=== PATIENT | male | born 1965 | race Caucasian/White ===

== ENCOUNTER 2021-01-07 10:53 | Emergency (ER) | payer OTHER, SELFPAY ==
[2021-01-07 11:04] VITALS: BP 151/97; PULSE 82; RESP 20; TEMP 36.6; O2SAT 99
--- NOTE | 2021-01-07 12:37 | ED.GENADULT ---
HPI - General Adult General Chief complaint: Head Injury <Devon Cha PA-C - Last Filed: 01/07/21 12:41> Stated complaint: head injury <Devon Cha PA-C - Last Filed: 01/07/21 12:41> Time Seen by Provider: 01/07/21 11:16 <Devon Cha PA-C - Last Filed: 01/07/21 12:41> Source: patient <Devon Cha PA-C - Last Filed: 01/07/21 12:41> Mode of arrival: ambulatory <Devon Cha PA-C - Last Filed: 01/07/21 12:41> Limitations: no limitations <Devon Cha PA-C - Last Filed: 01/07/21 12:41> History of Present Illness HPI narrative: Patient is a 55-year-old male who presents with laceration to the parietal scalp that occurred just prior to arrival patient had the alberto of his vehicle open slipped and struck his head sustaining a laceration notes mild discomfort at the location of the laceration with mild headache denies lightheadedness dizziness loss of consciousness syncope neck pain or anticoagulant use presents per private vehicle no distress has not taken anything for his symptoms does not wish for any pain medication at this time <Devon Cha PA-C - Last Filed: 01/07/21 12:41> Related Data Home medications: Home Medications Medication Instructions Recorded Confirmed Flomax 01/07/21 fremanezumab-vfrm [Ajovy Syringe] mg SUBCUT 01/07/21 testosterone cypionate mg 01/07/21 <Devon Cha PA-C - Last Filed: 01/07/21 12:41> Allergies/adverse reactions: Allergies Allergy/AdvReac Type Severity Reaction Status Date / Time No Known Allergies Allergy Verified 01/07/21 11:07 <Devon Cha PA-C - Last Filed: 01/07/21 12:41> Review of Systems Review of Systems: All systems reviewed & are unremarkable except as noted in HPI and below <Devon Cha PA-C - Last Filed: 01/07/21 12:41> PMFSH Social History Social History: Social History (Updated 01/07/21 @ 12:38 by Devon Cha PA-C) Smoking status: Never smoker Gender identity (if verbalized by the patient): Male <HEATHER Garcia Last Filed: 01/07/21 12:41> Exam Narrative: Exam Narrative: GENERAL: Well-appearing, well-nourished, and in no acute distress. HEAD: Normocephalic, 2 cm irregular laceration frontal parietal scalp EYES: PERRLA and EOMI. ENT: Nares clear, no rhinorrhea or epistaxis. Mucous membranes moist. NECK: Supple. No adenopathy or masses. EXTREMITIES: Normal range of motion. No edema. No cervical spine tenderness SKIN: Warm, dry, no rash. NEURO: No focal deficits. Alert and oriented x3. Cranial nerves II through XII grossly intact PSYCH: Normal mood and affect. <HEATHER Garcia Last Filed: 01/07/21 12:41> Course Course Emergency Course: Patient evaluated the emergency department scalp closed with domonique will follow with primary care no concerning findings otherwise at this time patient hemodynamically stable ABCs vital signs intact stable patient agrees with plan <Devon Cha PA-C - Last Filed: 01/07/21 12:41> Vital Signs Vital signs: Vital Signs Temperature 97.8 F 01/07/21 11:04 Pulse Rate 82 01/07/21 11:04 Respiratory Rate 20 01/07/21 11:04 Blood Pressure 151/97 H 01/07/21 11:04 Pulse Oximetry 99 01/07/21 11:04 Temperature 97.8 F 01/07/21 11:04 Pulse Rate 78 01/07/21 12:45 Respiratory Rate 18 01/07/21 12:45 Blood Pressure 146/88 H 01/07/21 12:45 Pulse Oximetry 98 01/07/21 12:45 <HEATHER Garcia Last Filed: 01/07/21 12:41> Vital Signs Temperature 97.8 F 01/07/21 11:04 Pulse Rate 82 01/07/21 11:04 Respiratory Rate 20 01/07/21 11:04 Blood Pressure 151/97 H 01/07/21 11:04 Pulse Oximetry 99 01/07/21 11:04 Temperature 97.8 F 01/07/21 11:04 Pulse Rate 78 01/07/21 12:45 Respiratory Rate 18 01/07/21 12:45 Blood Pressure 146/88 H 01/07/21 12:45 Pulse Oximetry 98 02/14/21 12:45 <Vira Walters MD
[2021-01-07 12:45] VITALS: BP 146/88; PULSE 78; RESP 18; O2SAT 98
== END 2021-01-07 12:48 | disposition home or self-care (01) ==
PROVIDERS: Emergency Provider General Practice; PCP Internal Medicine
DX: S01.01XA Laceration without foreign body of scalp, initial encounter (principal); W22.8XXA Striking against or struck by other objects, initial encounter
CPT/HCPCS: 12001; 99283

== ENCOUNTER 2021-04-02 15:48 | Outpatient (CLI) | payer OTHER, SELFPAY ==
--- NOTE | ~2021-04-02 | MR_ITS ---
EXAMINATION: MR shoulder LT wo con DATE: 04/02/2021 16:55 INDICATION: Left shoulder pain TECHNIQUE: Magnetic resonance imaging (MRI) of the left shoulder was performed without intravenous co ntrast. Sequences included axial PD-weighted FS FSE, coronal oblique PD-weighted FS FSE, coronal obli que T2-weighted FS FSE, sagittal PD-weighted FS FSE, and sagittal T1-weighted SE. COMPARISON: None. FINDINGS: Coracoacromial arch: The acromion undersurface is curved in morphology (type II). The coracoacromial ligament is normal. M oderate acromioclavicular osteoarthritis with subarticular edema and cystic change at both sides of t he joint space.. Rotator cuff: Mild tendinopathy at the distal supraspinatus tendon. The infraspinatus and teres minor tendons are n ormal. Mild tendinopathy at the cephalad aspect of the distal subscapularis tendon. Normal rotator cu ff muscle bulk and signal. Biceps tendon, glenoid labrum and glenohumeral cartilage: Long head of the biceps tendon is normal. There is a tear at the 11:00-9:30 position of the posterior superior glenoid labrum. The inferior labrum is diminutive but without discrete tear. Mild partial t hickness cartilage loss with smooth chondral surface along the posterior and superior glenoid. Fluid: Physiologic amount of fluid in the glenohumeral joint and biceps tendon sheath. No loose osteochondra l bodies. No abnormal fluid in the subacromial/subdeltoid bursa to suggest bursitis. Bones: Aside from at the acromioclavicular joint there is normal marrow signal. No fracture or pathologic ma rrow replacing process. IMPRESSION: 1. Moderate acromioclavicular osteoarthritis with subarticular cystic change and prominent reactive m arrow edema. 2. Mild supraspinatus and subscapularis tendinopathy without discrete tear. 3. Minimal glenohumeral osteoarthritis with tear at the posterior superior glenoid labrum. Reviewed, dictated and finalized at location A. IMPRESSION: 1. Moderate acromioclavicular osteoarthritis with subarticular cystic change an d prominent reactive marrow edema. 2. Mild supraspinatus and subscapularis tendinopathy without discrete tear. 3. Minimal glenohumeral osteoarthritis with tear at the posterior superior yamini oid labrum.
== END 2021-04-02 15:49 | disposition home or self-care (01) ==
PROVIDERS: Visit Provider Orthopaedic Surgery
DX: M19.012 Primary osteoarthritis, left shoulder (principal)
CPT/HCPCS: 73221

== ENCOUNTER 2021-11-19 14:47 | Outpatient (CLI) | payer OTHER, SELFPAY ==
--- NOTE | ~2021-11-19 | XR_ITS ---
XR abdomen/kub 1V DATE: 11/19/2021 15:06 INDICATION: Microscopic hematuria TECHNIQUE: AP projection, 2 views COMPARISON: None FINDINGS: There is a moderately prominent amount of fecal material in the colon but no evidence of martha wel obstruction. 7 x 11.5 mm radiopaque foreign body overlies the right lower quadrant of the abdomen. No visceromegaly or significant abnormal calcification is evident. The psoas shadows are intact. IMPRESSION: Nonspecific abdomen Reviewed, dictated and finalized at Location A. Reviewed, dictated and finalized at location A. RVISOR FURNACE PROCESS IMPRESSION: Nonspecific abdomen
== END 2021-11-19 14:48 | disposition home or self-care (01) ==
LOC: ANHIMG 14:55
PROVIDERS: Visit Provider Urology
DX: R31.29 Other microscopic hematuria (principal)
CPT/HCPCS: 74018

== ENCOUNTER 2021-12-06 09:56 | Outpatient (CLI) | payer OTHER, SELFPAY ==
--- NOTE | ~2021-12-06 | XR_ITS ---
EXAMINATION: XR abdomen/kub 1V DATE: 12/06/2021 10:18 INDICATION: Foreign body in colon. Swallowed crown in May. TECHNIQUE: A supine view of the abdomen on 2 radiographs was obtained. COMPARISON: Abdomen radiographs 11/19/2021 FINDINGS: There are no dilated loops of bowel. There is a 14 mm radiopaque foreign body in right abdo men. There is a phlebolith in left pelvis. IMPRESSION: 1. 14 mm radiopaque foreign body in right abdomen, most likely in the ascending colon. Reviewed, dictated and finalized at location B. CAL AFFAIRS MANAGER
== END 2021-12-06 09:57 | disposition home or self-care (01) ==
LOC: ANHIMG 10:01
DX: T18.9XXA Foreign body of alimentary tract, part unspecified, initial encounter (principal)
CPT/HCPCS: 74018

== ENCOUNTER 2022-07-13 12:00 | Emergency (ER) | payer OTHER, SELFPAY ==
--- NOTE | 2022-07-13 12:09 | ED.WOUNDLAC ---
HPI - Wound/Laceration General Chief Complaint: Wound/Laceration Stated Complaint: Laceration to finger on right hand Time Seen by Provider: 07/13/22 12:07 Source: patient Mode of arrival: ambulatory Limitations: no limitations History of Present Illness HPI narrative: Mr. Dill is a 56-year-old male patient presenting to the clinic today with complaints of a laceration to the index finger of his right hand. He reports he was trying to cut a hook at the back of a fish and fish jumped and he jabbed himself with the fillet knife. He reports that the knife was brand-new. Had tetanus shot approximately 9 years ago. Review of Systems Review of Systems: Pertinent positives per HPI. Patient denies any fever, chills, rash, headache, visual changes, dizziness, cough, runny nose, sore throat, shortness of breath, chest pain, palpitations, nausea, vomiting, diarrhea, constipation, abdominal pain, or any urinary issues. PMFSH Comments At the time of my signature, I reviewed and agree with the nursing past medical, surgical, social, and family history. There is no relevant family history pertinent to the patient complaint. Exam Narrative: General: Well-developed, well nourished, in no apparent distress Head: Normocephalic, atraumatic. Cardio: Regular rate and rhythm, s1 and s2 normal, no murmur appreciated. Resp: Clear to auscultation bilaterally, no rhonchi, rales, wheezing or rubs. Integumentary: [place], warm, and dry, 2 cm gaping laceration to the volar aspect of the right second digit just above the MIP joint Course Course Emergency Course: Portions of this record may have been created with voice recognition software. Level of Care: Express Care Visit Vital Signs Vital signs: Vital signs reviewed Procedures Laceration Laceration 1: Date: 07/13/22 Site: hand (Index finger) Side (If applicable): right Size (cm): 2 Description: linear Depth: simple, single layer Local Anesthetic: lidocaine 1% Amount of anesthesia used (mL): 1 Pre-repair: wound explored and irrigated ====== Skin Level ====== Skin layer closed with: nylon Size (cm): 4-0 Number of sutures: 4 Technique: simple, interrupted ====== Subcutaneous Layer ====== ====== Muscle Layer ====== ====== Tendon Layer ====== Dressing: Verbal consent obtained for laceration repair. Risk and benefits explained and patient voiced understanding. Area was cleansed with Betadine and a 25 gauge needle was then used to instill (1) ml of 1% lidocaine without epi into the wound edges. Area was prepped and draped using sterile technique. A 4-0 suture on a p needle was used to place (4) interrupted sutures bringing the wound edges together- well approximated. Patient tolerated procedure well. Sterile dressing applied. MDM - Wound/Laceration MDM Narrative Medical decision making narrative: At the time of visit patient was resting comfortably on the exam table. Laceration repair procedure performed in the clinic today. 4 interrupted sutures were placed and wound edges were together well approximated. Supportive measures were discussed with the patient he voiced understanding of discharge instructions. Tetanus shot was given in clinic today. Differential Diagnosis Differential diagnosis: Likely laceration and avulsion of skin Discharge Plan Discharge Clinical Impression: Finger laceration Qualifiers: Encounter type: initial encounter Finger: index finger Damage to nail status: without damage Foreign body presence: without foreign body Laterality: right Qualified Code(s): S61.210A - Laceration without foreign body of right index finger without damage to nail, initial encounter Patient Disposition: Home, Self-Care Condition: Stable Instructions: Antibiotic Form, Finger Laceration (ED) Additional Instructions: Tetanus booster given in the clinic today Leave ba
[2022-07-13] MEDS: TETANUS,DIPHTHERIA,AC PERTUSSIS ADULT (0.5 ML) BOOSTRIX IM (12:45)
== END 2022-07-13 13:05 | disposition home or self-care (01) ==
PROVIDERS: Emergency Provider Nurse Practitioner Family; PCP Internal Medicine
DX: S61.210A Laceration without foreign body of right index finger without damage to nail, initial encounter (principal); W26.0XXA Contact with knife, initial encounter; Z23 Encounter for immunization; E78.00 Pure hypercholesterolemia, unspecified; I10 Essential (primary) hypertension
CPT/HCPCS: 12001; 90471; 90715; 99212; G0463

== ENCOUNTER 2024-12-10 14:26 | Outpatient (CLI) | payer OTHER, SELFPAY ==
--- NOTE | ~2024-12-10 | US_ITS ---
EXAMINATION: US venous doppler [facility] DATE: 12/10/2024 15:07 INDICATION: LT calf pain . TECHNIQUE: Grayscale images without and with compression and Doppler images of the left lower extremi ty veins were obtained. COMPARISON: None FINDINGS: The greater saphenous vein is dilated and noncompressible from the level of the knee to mid calf. The left common femoral vein, profunda (deep) femoral vein, femoral vein, popliteal vein, peroneal vein , posterior tibial veins, and gastrocnemius vein are patent. IMPRESSION: Acute left greater saphenous DVT. Otherwise patent left lower extremity veins. Reviewed, dictated and finalized at location K. ER COPPER
--- OUTSIDE RECORDS SUMMARY | 2024-12-16 07:07 | XMS_ITS | Continuity of Care Document ---
Author Name [facility] Organization [facility] Care Team Providers Care Residence Manager Name Role Phone [facility] Unavailable Unavailable Encounters Combined list of: 1) Encounters from Department of Veterans Affairs facilities going back up to thelast 18 months. 2) Encounters from the Department of Defense facilities going back up to 280 months. Location Location Details Encounter Type Encounter Number Reason For Visit Attending Provider ADM Date DC Date Status Disposition Source [facility] Outpatient Encounter [id number] 04/28 [facility] Social History Combined list of available smoking, tobacco, and other social history from Department of Defense and Veterans Affairs facilities. Social History Type Response Date Comment Sourc e This section is an empty social history section. DoD
== END 2024-12-10 14:27 | disposition home or self-care (01) ==
LOC: ANHIMG 14:32
PROVIDERS: PCP Internal Medicine; Visit Provider Internal Medicine
DX: I82.812 Embolism and thrombosis of superficial veins of left lower extremity (principal)
CPT/HCPCS: 93971

== ENCOUNTER 2024-12-14 14:33 | Outpatient (CLI) | payer OTHER, SELFPAY ==
--- NOTE | ~2024-12-14 | US_ITS ---
EXAMINATION:US venous doppler LE RT INDICATION:Right calf pain. Patient on blood thinners. TECHNIQUE: Multiple grayscale, color flow and Doppler images of the right lower extremity deep venous systems were obtained and reviewed. COMPARISON:No prior studies for comparison. FINDINGS: The common femoral, superficial femoral and popliteal veins demonstrate normal respiratory variation, augmentation and compressibility. Color flow is also seen within the posterior tibial, pe roneal, and profunda veins. There is superficial venous thrombosis of the distal aspect of the greate r saphenous vein. IMPRESSION: 1: No lower extremity deep venous thrombosis. 2: Superficial venous thrombosis of the right greater saphenous vein. Reviewed, dictated and finalized at location A. NSED CLINICIAN
--- OUTSIDE RECORDS SUMMARY | 2024-12-16 19:03 | XMS_ITS | Continuity of Care Document ---
Author Name [facility] Organization [facility] Care Team Providers Care Tar Chaser Name Role Phone [facility] Unavailable Unavailable Encounters Combined list of: 1) Encounters from Department of Veterans Affairs facilities going back up to thelast 18 months. 2) Encounters from the Department of Defense facilities going back up to 280 months. Location Location Details Encounter Type Encounter Number Reason For Visit Attending Provider ADM Date DC Date Status Disposition Source [facility] Outpatient Encounter [id number] 04/28 [facility] Social History Combined list of available smoking, tobacco, and other social history from Department of Defense and Veterans Affairs facilities. Social History Type Response Date Comment Sourc e This section is an empty social history section. DoD
--- OUTSIDE RECORDS SUMMARY | 2024-12-16 19:03 | XMS_ITS | Referral Summary ---
Author Organization [facility] Address [address] [place] [address] Care Team Providers Care Electric Meter Tester Name Role Phone Maria Ines Steiner MD Primary Care Provider [phone] Source Comments [facility] Affiliates and Associated Physician Practices is amultiple site organization consisting of ambulatory clinics and hospital sitesin [place], [place], [place] and [place]. This disclosure is being madepursuant to the Care Everywhere program and may not contain all information available regarding this patient. Last updated 18.[facility] Allergies Active Allergy Reactions Criticality Noted Date Comments Morphine Other,GI Discomfort migraines Opioids - Morphine Analogues [Other] Other 12/26/2017 Causes migraines Oxycodone-Acetaminophen Other 12/05/2011 Gets migraines Medications * Be aware that medications may not be up to date on this document. Always verify current medications with the patient. Medication Sig Dispensed Refills Start Date End Date Status MAXALT-CARPENTRY FOREMAN [address] 1 TABLET ON TONGUE AT ONSET OF MIGRAINE, MAY REPEAT IN 2 HOURS, NO MORE THAN 2 TABLETS IN 24 HOURS 36 Tab 1 11/19/2012 Active simvastatin (ZOCOR) 40 MG tablet Take 40 mg by mouth at bedtime Active lisinopril (PRINIVIL; ZESTRIL) 10 MG tablet Take 10 mg by mouth once daily Active ASPIRIN 81 PO Active benzonatate (TESSALON) 200 MG capsuleIndications :Acute pansinusitis, recurrence not specified Take 1 capsule by mouth 3 times daily as needed for Cough 30 capsule 10/13/2018 Active Additional Information Patient not taking.Reported on 05/11/2019 predniSONE (DELTASONE) 20 MG tablet 04/16/2019 Active hydroCHLOROthiazid e (MICROZIDE) 12.5 MG capsule Take 1 capsule by mouth once daily 90 capsule 4 05/11/2019 Active Active Problems Problem Noted Date Diagnosed Date Chronic sinusitis 03/30/2009 Migraine 03/30/2009 Overview (08/24/2015): Other and unspecified hyperlipidemia 03/30/2009 Benign essential tremor Immunizations Name Administration Dates Next Due PPD 12/10/2007 Social History Tobacco Use Types Packs/Day Years Used Date Smoking Tobacco: Never Smokeless Tobacco: Never Tobacco Cessation:Counseling Given: No Alcohol Use Standard Drinks/Week Comments No 0 (1 standard drink = 0.6 oz pur e alcohol) Sex and Gender Information Value Date Recorded Sex Assigned at Not on file Gender Identity Not on file Sexual Orientation Not on file Last Filed Vital Signs Vital Sign Reading Time Taken Comments Blood Pressure 130/90 05/11/2019 3:59 PM CDT Pulse 98 05/11/2019 3:59 PM CDT Temperature 38.4 ??C (101.1 ??F) 10/13/2018 5:[address] Respiratory Rate 16 10/13/2018 5:35 PM C IRON WORKER Oxygen Saturation 97% 05/11/2019 3:59 PM CDT Inhaled Oxygen Concentration - - Weight 87.1 kg (192 lb) 05/11/2019 3:59 PM CDT Height 175.3 cm (5' 9 ) 05/11/2019 3:59 PM CDT Body Mass Index 28.35 05/11/2019 3:59 PM CDT Plan of Treatment Not on file Procedures Procedure Name Priority Date/Time Associated Diagnosis Comments COMPREHENSIVE METABOLIC PANEL Routine 01/27/2013 11:43 AM C IRON WORKER Routine general medical examination at a health care facility HIV-1 HIV-2 ANTIBODY Routine 01/15/2012 8:57 AM C IRON WORKER ENDOSCOPY, COLON, SCREENING Routine 12/09/2011 10:32 AM C IRON WORKER from Last 3 Months or Most Recently Relevant to Health Maintenance Results * (ABNORMAL) COMPREHENSIVE METABOLIC PANEL (01/27/2013 11:43 AM C IRON WORKER) Glucose 108(H) 65 - 99 mg/dL [facility] INSURANCE BILL BUN 17 6 - 24 mg/dL [facility] INSURANCE BILL Creatinine 1.14 0.76 - 1.27 mg/dL [facility] INSURANCE BILL eGFR by MDRD 77 >59 mL/min/1.7 3 [facility] INSURANCE BILL eGFR by MDRD 89 >59 mL/min/1.7 3 [facility] INSURANCE BILL BUN/Creatinine Ratio 15 9 - 20 [facility] INSURANCE BILL Sodium 145(H) 134 - 144 mmol/L [facility] INSURANCE BILL Potassium 4.7 3.5 - 5.2 mmol/L [facility] INSURANCE BILL Chloride 105 97 - 108 mmol/L [facility] INSURANCE BILL CO2 26 20 - 32 mmol/L [facility] INSURANCE BILL Calcium 9.5 8.7 - 10.2 mg/dL [facility] INSURANCE BILL Protein Total 6.6 6.0 - 8.5 g/dL [facility] INSURANCE BILL Albumin 4.4 3.5 - 5.5 g/dL [facility] INSURANCE BILL Globulin Total 2.2 1.5 - 4.5 g/dL [facility] INSURANCE BILL Albumin/Globulin Ratio 2.0 1.1 - 2.5 [facility] INSURANCE BILL Bilirubin Total 0.4 0.0 - 1.2 mg/dL [facility] INSURANCE BILL Alkaline Phosphatase 55 25 - 150 IU/L [facility] INSURANCE BILL AST 32 0 - 40 IU/L [facility] INSURANCE BILL ALT 48(H) 0 - 44 IU/L [facility] INSURANCE BILL Blood specimen (specimen) BLOOD SPECIMEN / Unknown 01/27/2013 11:43 AM C IRON WORKER 01/27/2013 2:40 PM C IRON WORKER Narrative Resulting Agency Comment [facility] [address] ??[facility] [phone] David Simmons MD LAB - CHEMISTRY ARMANDO THOMAS [facility] INSURANCE BILL * HIV-1 HIV-2 ANTIBODY (01/15/2012 8:57 AM C IRON WORKER) HIV-1 Antibody O.D. Ratio <1.00 <1.00 [facility] INSURANCE BILL Comment:Index Value: Specime n reactivity relative to the negative cutoff. HIV-1/HIV-2 Non Reactive Non Reactive [facility] INSURANCE BILL Blood specimen (specimen) BLOOD SPECIMEN / Unknown 01/15/2012 8:57 AM C IRON WORKER 01/15/2012 1:53 PM C IRON WORKER Narrative Resulting Agency Comment [facility] [place] [id number] ??[facility] [phone] David Simmons MD LAB - CHEMISTRY ORDDandy THOMAS [facility] INSURANCE BILL * ENDOSCOPY, COLON, SCREENING (12/09/2011 10:32 AM C IRON WORKER) Narrative Transcriptions Zak Morillo MD - 12/09/2011 10:32 AM CST Zak Morillo MD GI PROCEDURE ORDERAB LES [facility] ENDOSCOPY from Last 3 Months or Most Recently Relevant to Health Maintenance Administered Medications Care Teams Electric Meter Tester Relationship Specialty Start Date End Date White, Maria Ines A, MD [address] [place] [address] PCP - General Internal Medicine 09/01/24
--- OUTSIDE RECORDS SUMMARY | 2024-12-16 19:03 | XMS_ITS | Referral Summary ---
Author Organization [address] Address [address] [place] [address] Care Team Providers Care Display Associate Name Role Phone Amilcar Ramsey MD Unavailable [phone] Maria Ines Steiner MD Primary Care Provider [phone] Encounters Date Type Department Care Team Description 11/25/2024 [facility]phone [facility] [address] [facility] [address], [place] [phone] López Kaplan MD 11/22/2024 [facility] [address] [facility] [address] [place] [address] López Kaplan MD 11/10/2024 [facility] [address] [facility] [address], [place] [phone] López Kaplan MD 10/04/2024 Telephone [facility] Surgery [address] [place] [address] Esther Del Cid 09/20/2024 Telephone [facility] Urology [address] [facility] Medical Office Building [address] [place] [address] Anshu Forbes MD from Last 3 Months Allergies Active Allergy Reactions Criticality Noted Date Comments Alprazolam Headache Low 08/23/2020 Cyclobenzaprine Unknown 08/23/2020 Zuigk-Tmop-S.Yiqk-Hrz-Sls u-Gallo Headache Low 01/16/2023 Iodinated Contrast Media Unknown 01/16/2023 Mold Headache Low 01/16/2023 Morphine Opioids - Morphine Analogues Unknown 12/26/2017 Oxycodone-Acetaminophen Headache,Other ( See comments),Unknown Medium 03/19/2010 Gets migraines Other reaction(s): Headache, Other Gets migraines Gets migraines Propranolol Unknown 08/23/2020 Quetiapine Unknown 08/23/2020 Medications lisinopril (PRINIVIL,ZESTRI L) 20 mg tablet Take 1 tablet (20 mg total) by mouth daily Active aspirin 81 mg tablet Take 1 tablet (81 mg total) by mouth daily Active rosuvastatin (CRESTOR) 20 mg tablet 2 Active rimegepant (Nurtec ODT) tablet,disintegr ating Take 1 tablet (75 mg total) by mouth as needed (migraine) 8 tablet 5 4 Active rizatriptan (MAXALT) 10 mg tablet Take 1 tablet (10 mg total) by mouth once as needed for migraine May repeat in 2 hours if unresolved. Do not exceed 30 mg in 24 hours. 9 tablet 5 4 Active finasteride (PROSCAR) 5 mg tablet Take 1 tablet (5 mg total) by mouth daily 90 tablet 3 4 Active rOPINIRole (REQUIP) 0.25 mg tablet Take 1 tablet (0.25 mg total) by mouth 2 (two) times a day 60 tablet 5 5 Active fremanezumab-vfr m (Ajovy Autoinjector) 225 mg/1.5 mL auto-injector subcutaneous auto-injector Inject 1.5 mL (225 mg total) under the skin every 30 (thirty) days 1 mL 11 5 Active fremanezumab-vfr m (Ajovy Autoinjector) 225 mg/1.5 mL auto-injector subcutaneous auto-injector Inject 1.5 mL (225 mg total) under the skin every 30 (thirty) days 1 mL 4 12/15/19 25 Discontinu ed(Reorder ) rOPINIRole (REQUIP) 0.25 mg tablet Take 1 tablet (0.25 mg total) by mouth 2 (two) times a day 60 tablet 4 11/25/19 25 Discontinu ed(Reorder ) Active Problems Problem Noted Date Diagnosed Date Essential hypertension 05/11/2021 Other chest pain 05/11/2021 Benign essential tremor 12/26/2017 Assessment & Plan (11/13/2022 3:58 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 Diaz has a longstanding history of a benign essential tremor. He feels if things are currently stable with his tremor without medication. He does note that caffeine, lack of sleep and stress can be exacerbating factors with his tremor. Has completely cut out caffeine in the last month with favorable outcomes. Assessment & Plan (06/11/2021 4:14 PM CDT): Mr. Diaz has a longstanding history of a benign essential tremor. He feels if things are currently stable with his tremor without medication. He does note that caffeine, lack of sleep and stress can be exacerbating factors with his tremor. Assessment & Plan (04/17/2018 4:48 PM CDT): This is well controlled currently Snoring 12/26/2017 Fatigue 12/26/2017 Vivid dream 12/26/2017 Hx of concussion 12/26/2017 Chronic migraine 11/21/2016 Assessment & Plan (06/11/2021 4:17 PM CDT): Mr. Diaz presents today for evaluation of migraine headaches. He has a longstanding history of migraine headaches. He is happy with his current management of Ajovy 225mg every 30 days. He has less than 3 headache days per month. He will take Maxalt 10mg at the onset of an acute headache with adequate relief of his symptoms. Plan: Continue with present management of Ajovy 225mg every 30 days. Maxalt 10mg at the onset of an acute headache. Instructed patient to take triptan early for best results at onset of headache. May repeat in 2 hours if needed. Maximum 2 doses in 24 hours. Avoid taking triptan greater than 3 days per week or 10 doses per month to prevent rebound headaches. Follow-up 1 year. At today? s visit migraine education was performed. We discussed avoidance of migraine triggers and non-medicinal strategies for preventing migraines. Topics of discussion included improved sleep hygiene, healthy diet, and stress reduction techniques. We also discussed the importance of avoiding medication overuse, as this can promote analgesic rebound headache. Assessment & Plan (02/21/2020 1:47 PM CDT): Remains happy with management on Ajovy 225 every month. Has about 3 headaches per month, well managed with maxalt PRN (one headache per month can be treated with aspirin/aleve alone without maxalt) Encouraged continued efforts to manage lifestyle contributors to headache. Call if change/concern Offered 6-12 month follow up otherwise if remaining well controlled. Assessment & Plan (08/23/2019 11:08 AM CDT): Very happy with management on Ajovy, from daily headache to 1 every 2 weeks. Continue current management and PRN maxalt Continue efforts to stay hydrated, exercise, avoid caffeine RTC in 3-6 months, call for change Sample given today and refill provided Assessment & Plan (05/17/2019 3:50 PM CDT): Wants to stop botox. Has had essentially 30/30 days of headache since last visit. Discussed CGRP inhibitors and will start Aimovig 70, sample given today. Side effects reviewed, including that this is a relatively new medication we are only starting to get experience with and to call if any concerns/issues. RTC in 3 months Assessment & Plan (07/13/2018 4:25 PM CDT): Took a couple months, but now with good response to Botox, having once weekly headaches that are responding to maxalt. Will try adjusting weekend sleep schedule to keep it regular with weekday and continue PRN treatment. RTC in 1 month for Botox # 2 Assessment & Plan (04/17/2018 4:47 PM CDT): Titration up of propranolol without significant benefit on headaches, continues to have >15 headache days per month. Given failure of propranolol, amitriptyline and topiramate and continued limiting headaches, suggested botox injections as next attempt to control headaches. I reviewed side effects and injection procedure and provided him with informational booklet on botox. Continue current dose of propranolol 180mg. Reviewed analgesic overuse and encourged he reduce treatment to less than 10 days per month. I encouraged he try to increase sleep from 5 hours to at least 7, but encouraged his efforts to reduce caffeine use and stay physically active. I will see in 1 month for botox injection #1 High cholesterol 01/25/2010 Chronic sinusitis 03/30/2009 Other and unspecified hyperlipidemia 03/30/2009 Resolved Problems Problem Noted Date Diagnosed Date Resolved Date Medication overuse headache 12/26/2017 02/21/2020 Assessment & Plan (05/17/2019 3:46 PM CDT): Took 32 maxalt in last month by using saved medications and all of his son's medication. I advised against using other's medication and explained that restriction on prescription is to prevent overuse headaches which I think is part of the increase in headaches despite botox. Assessment & Plan (07/13/2018 4:28 PM CDT): Improved last few weeks with decrease in headaches Assessment & Plan (04/17/2018 4:48 PM CDT): As above, reduce use to no more than 2 days per week/10 total days per month of treatment This includes limiting maxalt and ibuprofen/aspirin use Disturbance in sleep behavior 12/26/2017 04/21/2018 Migraine 03/30/2009 07/13/2018 Overview (12/26/2017): Overview: Assessment & Plan (11/13/2022 3:57 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 Diaz presents today for evaluation of migraine headaches. He has a longstanding history of migraine headaches. He is happy with his current management of Ajovy 225mg every 30 days. He has very infrequent migraines, last migraine was 4 months ago. He will take Maxalt 10mg at the onset of an acute headache with adequate relief of his symptoms. Plan: -Continue with present management of Ajovy 225mg every 30 days. -Maxalt 10mg at the onset of an acute headache. Instructed patient to take triptan early for best results at onset of headache. May repeat in 2 hours if needed. Maximum 2 doses in 24 hours. Avoid taking triptan greater than 3 days per week or 10 doses per month to prevent rebound headaches. -Follow-up 1 year-18 months At today? s visit migraine education was performed. We discussed avoidance of migraine triggers and non-medicinal strategies for preventing migraines. Topics of discussion included improved sleep hygiene, healthy diet, and stress reduction techniques. We also discussed the importance of avoiding medication overuse, as this can promote analgesic rebound headache. Assessment & Plan (02/27/2018 1:56 PM CDT): 52 year old man who presents for evaluation of long-standing headaches. He has pattern of seeing good result with medication for a period of months, with gradual loss of efficacy and need to switch to alternate medication. Currently having 15 or more headaches per month for last 2-3 months. Patient reports the following headache risk factors: (In past analgesic overuse), mild caffeine overuse, family history I reviewed all these factors at length with the patient and suggested treatment plan should include focused effort to reduce these lifestyle contributions to headache risk. We also discussed headache prevention and abortive medications, including: Venlafaxine, gabapentin, zonegran, and botox injections if continues to have 15 or more headaches per month given number of medications he has failed. He has never tried supplementing magnesium either. He also has sleep study scheduled, and if sleep apnea present could be an avenue of treatment. He is on propranolol LA 40 mg in evening per his report. Recommending increasing to 80 mg as next step. Continue PRN Maxalt, aware to try to limit treatment. RTC in 3 months, call with issues/concerns/for refills in interim. Social History Tobacco Use Types Packs/Day Years Used Date Smoking Tobacco: Never Smokeless Tobacco: Never Tobacco Cessation:Counseling Given: Not Answered Alcohol Use Standard Drinks/Week Comments No 0 (1 standard drink = 0.6 oz pur e alcohol) AUDIT-C Answer Date Recorded Q1: How often do you have a drink containing alc ohol? 2-4 times a month 11/13/2022 Q2: How many drinks containi ng alcohol do you have on a typical day when you are drinking? 1 or 2 11/13/2022 Q3: How often do you have si x or more drinks on one occasion? 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 TEACHER Gender Identity Not on file Sexual Orientation Not on file Last Filed Vital Signs Vital Sign Reading Time Taken Comments Blood Pressure 114/72 05/04/2024 2:56 PM CDT Pulse 53 05/04/2024 2:56 PM CDT Temperature 36.7 ??C (98 ??F) 12/26/2017 2:07 PM GEODESY TEACHER Respiratory Rate 16 05/04/2024 2:56 PM CDT Oxygen Saturation 97% 05/04/2024 2:56 PM CDT Inhaled Oxygen Concentration - - Weight 81.6 kg (180 lb) 05/04/2024 2:56 PM CDT Height 172.7 cm (5' 8 ) 05/04/2024 2:56 PM CDT Body Mass Index 27.37 05/04/2024 2:56 PM CDT Plan of Treatment Not on file Insurance [employer] OPEN ACCESS [facility] [id number] [facility] [id number] Care Teams Display Associate Relationship Specialty Start Date End Date Maria Ines Steiner [place] [address] PCP - General Internal Medicine 01/16/23 Amilcar Ramsey MD [address] [facility] [address] [place] [address] Internal Medicine 01/06/18
--- OUTSIDE RECORDS SUMMARY | 2024-12-16 19:03 | XMS_ITS | Encounter Summary ---
Author Organization [facility] Address 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
--- OUTSIDE RECORDS SUMMARY | 2024-12-16 19:03 | XMS_ITS | Clinical Summary ---
Author Organization [address] Address [address] [place] [address] Care Team Providers Care Ultrasound Technol Name Role Phone Amilcar Ramsey MD Unavailable [phone] Maria Ines Steiner MD Primary Care Provider [phone] Allergies Active Allergy Reactions Criticality Noted Date Comments Alprazolam Headache Low 08/23/2020 Cyclobenzaprine Unknown 08/23/2020 Piaqj-Npoy-A.Dtze-Oli-Uce u-Gallo Headache Low 01/16/2023 Iodinated Contrast Media [...] every 30 (thirty) days 1 mL 11 4 12/15/19 25 Discontinu ed(Reorder ) rOPINIRole (REQUIP) 0.25 mg tablet Take 1 tablet (0.25 mg total) by mouth 2 (two) times a day 60 tablet 4 11/25/19 25 Discontinu ed(Reorder ) Active Problems Problem Noted Date Diagnosed Date Essential hypertension 05/11/2021 Other chest pain 05/11/2021 Benign essential tremor 12/26/2017 Assessment & Plan (11/13/2022 3:58 PM LOG SNAKER): Mr. Diaz has a longstanding history of [...] Overview: Assessment & Plan (11/13/2022 3:57 PM LOG SNAKER): Mr. Diaz presents today for evaluation of [...] months, call with issues/concerns/for refills in interim. Encounters Date Type Department Care Team Description 11/25/2024 [facility]phone [facility] [address] [facility] [address], [place] [phone] López Kaplan MD 11/22/2024 [facility]phone [facility] [address] [place] [address] [address], [place] [phone] López Kaplan MD 11/10/2024 [facility]phone [facility] [address] [place] [address] [address] [place] [phone] López Kaplan MD 10/04/2024 Telephone [facility] Surgery [address] [place] [address] Esther Del Cid 09/20/2024 Telephone [facility]rology [address] [facility] Medical Office Building [address] [place] [phone] Anshu Forbes MD from Last 3 Months Surgical History Surgery Date Site/Laterality Comments HERNIA REPAIR 2000 right 2012 left side Medical History Medical History Date Comments Migraine Hypertension Urinary tract infection Family History Medical History Relation Name Comments Cancer Father Heart attack Father Heart disease Father Hypertension Father Cancer Mother Relation Name Status Comments Father Mother Social History Tobacco Use Types Packs/Day Years [...] on file Legal Sex Male 7:47 AM LOG SNAKER Gender Identity Not on file Sexual Orientation Not on file Obstetrics History Last Filed Vital Signs Vital Sign Reading Time Taken Comments Blood Pressure 114/72 05/04/2024 2:56 PM CDT Pulse 53 05/04/2024 2:56 PM CDT Temperature 36.7 ??C (98 ??F) 12/26/2017 2:07 PM LOG SNAKER Respiratory Rate 16 05/04/2024 2:56 PM CDT Oxygen Saturation 97% 05/04/2024 2:56 PM CDT Inhaled Oxygen Concentration - - Weight 81.6 kg (180 lb) 05/04/2024 2:56 PM CDT Height 172.7 cm (5' 8 ) 05/04/2024 2:56 PM CDT Body Mass Index 27.37 05/04/2024 2:56 PM CDT Plan of Treatment Health Maintenance Due Date Last Done Comments Colon Cancer Screening-Colonoscopy 1967 Depression Screening 1967 Hepatitis C Screening 1967 Prostate Cancer Screening-PSA 1967 DTaP/Tdap/Td Vaccine (1 - Tdap) 1978 Hepatitis B Screening 1985 Regular Well Visit/Exam 18-64 1985 Zoster Vaccine (1 of 2) 2017 Covid-19 Vaccine (3 - 2023-2 5 season) 2024 01/09/2022, 12/19/2021 Influenza Vaccine (#1) 2024 Pneumococcal vaccine <65 Aged Out No longer eligible based on patient's age to complete this topic Insurance [facility] OPEN ACCESS [facility] [id number] [facility] [id number] Care Teams Ultrasound Technol Relationship Specialty Start Date End Date Maria Ines Steiner MD [address] [place] [address] PCP - General Internal Medicine 01/16/23 Amilcar Ramsey MD [address] [address] [place] [address] Internal Medicine 01/06/18
--- OUTSIDE RECORDS SUMMARY | 2024-12-16 19:03 | XMS_ITS | Clinical Summary ---
Author Organization [facility] Address [address] [facility] [place] [address] Care Team Providers Care Airline Operations Agent Name Role Phone Maria Ines Steiner MD Primary Care Provider [phone] Source Comments [facility],non-[facility] Affiliates and Associated Physician Practices is amultiple site organization consisting of ambulatory clinics and hospital sitesin [place], [place], [place] and [place]. This disclosure is being madepursuant to the Care Everywhere program and may not contain all information available regarding this patient. Last updated 18.[facility] Allergies Active Allergy Reactions Criticality Noted Date Comments Morphine Other,GI Discomfort migraines Opioids - Morphine Analogues [Other] Other 12/26/2017 Causes migraines Oxycodone-Acetaminophen Other 12/05/2011 Gets migraines Medications * Be aware that medications may not be up to date on this document. Alwaysverify current medications with the patient. Medication Sig Dispensed Refills Start Date End Date Status MAXALT-INDUSTRIAL PIPEFITTER JOURNEYMAN [address] TABLET ON [...] Name Administration Dates Next Due PPD 12/10/2007 Family History Medical History Relation Name Comments Asthma Father Emphysema Father Hypertension Father Cancer - Colon Mother Autoimmune Disease Neg Hx Bipolar Disorder Neg Hx Cancer - Breast Neg Hx Cancer - Other Neg Hx Cancer - Ovarian Neg Hx Cancer - Pancreatic Neg Hx Cancer - Prostate Neg Hx Depression Neg Hx Eczema Neg Hx Migraine Neg Hx Osteoporosis Neg Hx Seizures Neg Hx Sudd. <30 Neg Hx Thyroid Disease Neg Hx Ulcerative Colitis Neg Hx Relation Name Status Comments Brother Alive 2 brothers - go od health Child Alive x1 Migraines Father (Age 75) heart andreia ck Mother (Age 64) adb cancer Social History Tobacco Use Types Packs/Day Years [...] ST Respiratory Rate 16 10/13/2018 5:35 PM RECLAMATION ENGINEER Oxygen Saturation 97% 05/11/2019 3:59 PM CDT Inhaled Oxygen Concentration - - Weight 87.1 kg (192 lb) 05/11/2019 3:59 PM CDT Height 175.3 cm (5' 9 ) 05/11/2019 3:59 PM CDT Body Mass Index 28.35 05/11/2019 3:59 PM CDT Plan of Treatment Health Maintenance Due Date Last Done Comments COLOGUARD (AGES 45-75) - COLON CA SCREENING 1967 CT COLONOGRAPHY - COLON CA SCREENING 1967 FIT - COLON CA SCREENING 1967 FLEX SIG - COLON CA SCREENING 1967 HEPATITIS C SCREENING 09/21/1985 DTAP/TDAP/TD VACCINES (1 - Tdap) 1986 HEPATITIS B VACCINE (1 of 3 - 19+ 3-dose series) 1986 PNEUMOCOCCAL VACCINE 50+ (1 of 1 - PCV) 2017 ZOSTER VACCINE (1 of 2) 2017 SCREENING FOR DIABETES 10/13/2018 3, 01/27/2013, 01/15/2012, Additional history exists COLON MONITORING 12/09/2021 12/09/2011 COLONOSCOPY - COLON CA SCREENING 12/09/2021 12/09/2011 Colorectal Cancer Screening 12/09/2021 COVID-19 VACCINE ( - season) 2024 INFLUENZA VACCINE (#1) 2024 DEPRESSION SCREENING 11/24/2024 HIV SCREENING Completed 01/15/2012 HIB VACCINE Aged Out No longer eligi ble based on patient's age to complete this topic HPV VACCINE Aged Out No longer eligi ble based on patient's age to complete this topic MENINGOCOCCAL (Group B) VACCINE Aged Out No longer eligible based on patient's age to complete this topic MENINGOCOCCAL VACCINE Aged Out No sandy javier eligible based on patient's age to complete this topic PNEUMOCOCCAL VACCINE Aged Out No long er eligible based on patient's age to complete this topic Procedures Procedure Name Priority Date/Time Associated Diagnosis Comments COMPREHENSIVE METABOLIC PANEL Routine 01/27/2013 11:43 AM RECLAMATION ENGINEER Routine general medical examination at a health care facility HIV-1 HIV-2 ANTIBODY Routine 01/15/2012 8:57 AM RECLAMATION ENGINEER ENDOSCOPY, COLON, SCREENING Routine 12/09/2011 10:32 AM RECLAMATION ENGINEER from Last 3 Months or Most Recently Relevant to Health Maintenance Results * (ABNORMAL) COMPREHENSIVE METABOLIC PANEL (01/27/2013 11:43 AM RECLAMATION ENGINEER) Glucose 108(H) 65 - 99 mg/dL [facility] [...] BLOOD SPECIMEN / Unknown 01/27/2013 11:43 AM RECLAMATION ENGINEER 01/27/2013 2:40 PM RECLAMATION ENGINEER Narrative Resulting Agency Comment [facility] [address] ??Critical access hospital [id number] David Simmons MD LAB - CHEMISTRY ARMANDO THOMAS [facility] INSURANCE BILL * HIV-1 HIV-2 ANTIBODY (01/15/2012 8:57 AM RECLAMATION ENGINEER) HIV-1 Antibody O.D. Ratio <1.00 <1.00 [facility] INSURANCE BILL Comment:Index Value: Specime n reactivity relative to the negative cutoff. HIV-1/HIV-2 Non Reactive Non Reactive [facility] INSURANCE BILL Blood specimen (specimen) BLOOD SPECIMEN / Unknown 01/15/2012 8:57 AM RECLAMATION ENGINEER 01/15/2012 1:53 PM RECLAMATION ENGINEER Narrative Resulting Agency Comment [facility] [place] [address] [facility] ??Critical access hospital [id number] David Simmons MD LAB - CHEMISTRY ARMANDO THOMAS [facility] INSURANCE BILL * ENDOSCOPY, COLON, SCREENING (12/09/2011 10:32 AM RECLAMATION ENGINEER) Narrative Transcriptions Zak Morillo MD - 12/09/2011 10:32 AM CST Zak Morillo MD [facility] from Last 3 Months or Most Recently Relevant to Health Maintenance Care Teams Airline Operations Agent Relationship Specialty Start Date End Date Maria Ines Steiner MD [address] [place] [address] PCP - General Internal Medicine 09/01/24
--- OUTSIDE RECORDS SUMMARY | 2024-12-16 19:03 | XMS_ITS | Patient Health Summary ---
Author Organization [facility] Address [address] [place] [address] Care Team Providers Care Stagecraft Teacher Name Role Phone Maria Ines Steiner MD Primary Care Provider [phone] Note from [facility],non-owned Affiliates and Associated Physician Practices is amultiple site organization consisting of ambulatory clinics and hospital sitesin [place], [place], [place] and [place]. This disclosure is being madepursuant to the Care Everywhere program and may not contain all information available regarding this patient. Last updated 18.[facility] Allergies * Morphine(Other,GI Discomfort) * Opioids - Morphine Analogues [Other](Other) * Oxycodone-Acetaminophen(Other) Medications * Be aware that medications may not be up to date on this document. Alwaysverify current medications with the patient. * MAXALT-ONSHORE DIVER 10 MG tablet(Started 11/19/2012) PLACE 1 TABLET ON TONGUE AT ONSET OF MIGRAINE, MAY REPEAT IN 2 HOURS, NO MORE THAN 2 TABLETS IN 24 HOURS 1 refill left * simvastatin (ZOCOR) 40 MG tablet Take 40 mg by mouth at bedtime * lisinopril (PRINIVIL; ZESTRIL) 10 MG tablet Take 10 mg by mouth once daily * ASPIRIN 81 PO * benzonatate (TESSALON) 200 MG capsule(Started 10/13/2018) Take 1 capsule by mouth 3 times daily as needed for Cough * predniSONE (DELTASONE) 20 MG tablet(Started 04/16/2019) * hydroCHLOROthiazide (MICROZIDE) 12.5 MG capsule(Started 05/11/2019) Take 1 capsule by mouth once daily 4 refills remaining Active Problems Problem Noted Date Diagnosed Date Chronic sinusitis 03/30/2009 Migraine 03/30/2009 Other and unspecified hyperlipidemia 03/30/2009 Benign essential tremor Immunizations * PPD(Given 12/10/2007) Social History Tobacco Use Types Packs/Day Years [...] ST Respiratory Rate 16 10/13/2018 5:35 PM CUSTOMER AGENT Oxygen Saturation 97% 05/11/2019 3:59 PM CDT Inhaled Oxygen Concentration - - Weight 87.1 kg (192 lb) 05/11/2019 3:59 PM CDT Height 175.3 cm (5' 9 ) 05/11/2019 3:59 PM CDT Body Mass Index 28.35 05/11/2019 3:59 PM CDT Procedures * CARDIAC HOLTER MONITOR ORDER(Performed 06/09/2019) * CARDIAC EKG ORDER(Performed 06/03/2019) * KS ECG MONITOR/REV, UP TO 48 HRS INTERP(Performed 05/28/2019) Performed for Tachycardia * KS TTE W/DOPPLER, COMPLETE(Performed 05/25/2019) Performed for Tachycardia * INFLUENZA A+B - POINT OF CARE (AMB)(Performed 10/13/2018) Performed for Acute pansinusitis, recurrence not specified * STREP A SCREEN - POINT OF CARE (AMB) STL(Performed 10/13/2018) Performed for Acute pansinusitis, recurrence not specified * VITAMIN D 25-HYDROXY(Performed 01/27/2013) Performed for Routine general medical examination at a health care facility * TSH(Performed 01/27/2013) Performed for Routine general medical examination at a health care facility * PROSTATE SPECIFIC ANTIGEN SCREEN(Performed 01/27/2013) Performed for Routine general medical examination at a health care facility * LIPID PROFILE(Performed 01/27/2013) Performed for Other and unspecified hyperlipidemia * HEMOGLOBIN A1C(Performed 01/27/2013) Performed for Elevated blood sugar * COMPREHENSIVE METABOLIC PANEL(Performed 01/27/2013) Performed for Routine general medical examination at a health care facility * CBC W AUTO DIFFERENTIAL(Performed 01/27/2013) Performed for Routine general medical examination at a health care facility * XR CHEST 2VW(Performed 05/04/2012) Performed for Chest pain * EKG 12-LEAD(Performed 05/04/2012) Performed for Chest pain * SKIN TEST PPD - POINT OF CARE(Performed 01/30/2012) Performed for PPD screening test * SKIN TEST PPD - POINT OF CARE(Performed 01/23/2012) Performed for Need for tuberculosis vaccination * CT ABDOMEN PELVIS WWO CONTRAST(Performed 01/20/2012) * CELIAC DISEASE COMPREHENSIVE(Performed 01/15/2012) Performed for IBS (irritable bowel syndrome) * CBC W AUTO DIFFERENTIAL(Performed 01/15/2012) * LIPID PROFILE(Performed 01/15/2012) Performed for Other and unspecified hyperlipidemia * COMPREHENSIVE METABOLIC PANEL(Performed 01/15/2012) Performed for Other and unspecified hyperlipidemia * HIV-1 HIV-2 ANTIBODY(Performed 01/15/2012) * URINALYSIS - POINT OF CARE(Performed 01/13/2012) * ENDOSCOPY, COLON, SCREENING(Performed 12/09/2011) * LIPID PROFILE(Performed 06/03/2011) Performed for Other and unspecified hyperlipidemia, Encounter for long-term (current) use of other medications * COMPREHENSIVE METABOLIC PANEL(Performed 06/03/2011) Performed for Other and unspecified hyperlipidemia, Encounter for long-term (current) use of other medications * HEMOGLOBIN A1C(Performed 12/31/2010) Performed for Other and unspecified hyperlipidemia, Elevated blood sugar * LIPID PROFILE(Performed 12/31/2010) Performed for Other and unspecified hyperlipidemia, Elevated blood sugar * COMPREHENSIVE METABOLIC PANEL(Performed 12/31/2010) Performed for Other and unspecified hyperlipidemia, Elevated blood sugar * XR CHEST 2VW(Performed 08/27/2010) Performed for Cough * XR LUMBAR SPINE 4VW OR MORE(Performed 06/14/2010) Performed for Sciatica, LBP (Low Back Pain) * HEMOGLOBIN A1C(Performed 05/30/2010) * PROSTATE SPECIFIC ANTIGEN SCREEN(Performed 05/30/2010) Performed for Unspecified Migraine without Mention of Intractable Migraine, Other And Unspecified Hyperlipidemia, Routine General Medical Examination at a Health Care Facility * TSH(Performed 05/30/2010) Performed for Unspecified Migraine without Mention of Intractable Migraine, Other And Unspecified Hyperlipidemia, Routine General Medical Examination at a Health Care Facility * LIPID PROFILE(Performed 05/30/2010) Performed for Unspecified Migraine without Mention of Intractable Migraine, Other And Unspecified Hyperlipidemia, Routine General Medical Examination at a Health Care Facility * CBC W AUTO DIFFERENTIAL(Performed 05/30/2010) Performed for Unspecified Migraine without Mention of Intractable Migraine, Other And Unspecified Hyperlipidemia, Routine General Medical Examination at a Health Care Facility * COMPREHENSIVE METABOLIC PANEL(Performed 05/30/2010) Performed for Unspecified Migraine without Mention of Intractable Migraine, Other And Unspecified Hyperlipidemia, Routine General Medical Examination at a Health Care Facility * LIPID PROFILE(Performed 12/04/2009) Performed for Other And Unspecified Hyperlipidemia, Encounter for Long-Term (Current) Use of Other Medications * COMPREHENSIVE METABOLIC PANEL(Performed 12/04/2009) Performed for Other And Unspecified Hyperlipidemia, Encounter for Long-Term (Current) Use of Other Medications * HEPATIC FUNCTION PANEL(Performed 07/13/2009) Performed for Other and Unspecified Hyperlipidemia * LIPID PROFILE(Performed 07/13/2009) Performed for Other and Unspecified Hyperlipidemia * XR LUMBAR SPINE 4VW OR MORE(Performed 05/17/2009) Performed for Unspecified Backache Results * CARDIAC HOLTER MONITOR ORDER (06/09/2019 9:58 AM CDT) Narrative 06/09/2019 9:58 AM CDT Ordered by an unspecified provider. Scanned Document CARDIAC SERVICES ORD ERABLES * CARDIAC EKG ORDER (06/03/2019 10:39 AM CDT) Narrative 06/03/2019 10:39 AM CDT Ordered by an unspecified provider. Scanned Document CARDIAC SERVICES ORD ERABLES * KS ECG MONITOR/REV, UP TO 48 HRS INTERP (05/28/2019 3:25 PM CDT) Narrative Rosamaria Crowder MD - 05/28/2019 3:25 PM CDT Rosamaria Crowder MD ? 05/28/2019 ??3:25 PM Adolph Diaz underwent cardiac monitoring with a 24 hr holter monitor. ??Results are as follows: Quality of Tracings: ??Fair, with some baseline artifact. ??There were 16 hrs 48 minutes included to be analyzed. Rhythm: ??Sinus rhythm. Rates: ??57-127 bpm; average HR 89 bpm. ??No pauses >3 seconds. Ectopy: ??Rare, isolated PACs. Symptoms: ??No diary events recorded. Please feel free to contact me with any questions, thank you. Rosamaria Crowder MD Rosamaria Crowder MD ECG ORDERABLES * KS TTE W/DOPPLER, COMPLETE (05/25/2019 1:51 PM CDT) Narrative Yaritza Frank MD - 05/25/2019 1:51 PM CDT Yaritza Frank MD ? 05/25/2019 ??1:51 PM [facility] 2-D & M-Mode Echocardiogram Report Color Flow Doppler Report Patients Name: Adolph Diaz ?: 1965 Age: [age] year old Gender: male ?? Date of Test: ??05/24/2019 Referring Physician: Yaritza Frank MD [address] [facility] [address] [place] [address] Primary Care Physician: Amilcar Ramsey MD Introduction: Adolph Diaz is a 53 year old male with episodes of tachycardia. Indication: Tachycardia Chamber Measurements LV Internal Dimension Systole (cm): 2.1 cm LV Internal Dimension Diastole (cm): 4.6 cm Septal Thickness (cm): 1 cm Aortic Root Measurement (cm): 4.1 cm Left Atrium Measurement (cm): 2.7 cm LVOT Diameter (cm): 2.1 cm Ejection Fraction 71% Color Flow and Doppler Waveform Analysis Aortic Velocities: AV Max (m/s): 1.4 m/s LVOT max (m/s): 1 m/s Mitral Velocities: E (m/s): 0.5 m/s A (m/s): 0.8 m/s Tricuspid Velocities: Max Tricuspid Valve Velocity (m/s): 0.4 m/s PulmonicVelocities: Max Pulmonic Valve Velocity (m/s): 1 m/s OVERALL INTERPRETATION: - Normal left ventricular size and systolic function. There is concentric remodeling of the left ventricle. Ejection fraction is estimated to be 71%. - Normal right ventricular size and systolic function. - No abnormalities of the aorta or pericardium. - Normal aortic valve structure and velocities. No aortic regurgitation. No aortic stenosis. ?? - Normal mitral valve structure and velocities. ??Mild mitral regurgitation. ?? - Mitral valve velocities demonstrate abnormal E/A ratio, consistent with stage 1 diastolic dysfunction. - Normal tricuspid valve structure and velocities. ??Mild tricuspid regurgitation. - Calculated right ventricular systolic pressure of < 35 mmHg, which is normal. - Normal pulmonary valve structure and velocities. ??Mild pulmonary insufficiency. - Normal left and right atrial sizes. Electronically signed by: Yaritza Frank MD Date of Interpretation: 05/25/2019 ? Date of Final Report: 05/25/2019 Yaritza Frank MD ECG ORDERABLES * STREP A SCREEN (10/13/2018 6:03 PM CUSTOMER AGENT) Strep A Rapid POCT Negative Negative Strep A Internal Control Present Lot # [id number] Expiration Date 01/21/2020 Throat ENTIRE THROAT (SURFACE REGION OF NECK) / Unknown 10/13/2018 6:03 PM CUSTOMER AGENT Manjula Odonnell APRN-[facility] - POIN T OF CARE ORDERABLES * INFLUENZA A+B - POINT OF CARE (AMB) (10/13/2018 6:03 PM CUSTOMER AGENT) Influenza A Antigen Rapid Negative Negative Influenza B Antigen Rapid Negative Negative Influenza Internal Control present NEGATIVE - POSITIVE Influenza Lot Number [id number] Influenza Expiration Date 06/18/2020 Other NASOPHARYNGEAL SWAB / Unknown 10/13/2018 6:03 PM CUSTOMER AGENT Manjula Odonnell APRN-[facility] - POIN T OF CARE ORDERABLES * (ABNORMAL) HEMOGLOBIN A1C (01/27/2013 11:43 AM CUSTOMER AGENT) Only the most recent of3 resultswithin the time period is included. Hemoglobin A1c 6.1(H) 4.8 - 5.6 % [facility] INSURANCE BILL Comment: ? . ? Increased risk for diabetes: 5.7 - 6.4 ? Diabetes: >6.4 ? Glycemic control for adults with diabetes: <7.0 Whole blood specimen (specimen) BLOOD SPECIMEN / Unknown 01/27/2013 11:43 AM CUSTOMER AGENT 01/27/2013 2:40 PM CUSTOMER AGENT Narrative Resulting Agency Comment [facility] [address] ??[facility] [phone] David Simmons MD LAB - CHEMISTRY ARMANDO THOMAS [facility] INSURANCE BILL * VITAMIN D 25-HYDROXY (01/27/2013 11:43 AM CUSTOMER AGENT) Vitamin D, 25 Hydroxy 34.0 30.0 - 100.0 ng/mL [facility] INSURANCE BILL Comment: Vitamin D deficiency has been defined by the [place] of [employer] and an Endocrine Society practice guideline as a level of serum 25-OH vitamin D less than 20 ng/mL (1,2). The Endocrine Society went on to further define vitamin D insufficiency as a level between 21 and 29 ng/mL (2). 1. IOM ([place] of [employer]). 2010. Dietary reference ?? intakes for calcium and D. [place]: The ?? National Academies Press. 2. Helen MF, Damaris NC, Jaquelin ESPARZA, et al. ?? Evaluation, treatment, and prevention of vitamin D ?? deficiency: an Endocrine Society clinical practice ?? guideline. JCEM. 2011 May; 96(7):1911-30. Blood specimen (specimen) BLOOD SPECIMEN / Unknown 01/27/2013 11:43 AM CUSTOMER AGENT 01/27/2013 2:40 PM CUSTOMER AGENT Narrative Resulting Agency Comment [facility] [address] ??[facility] [phone] David Simmons MD LAB - CHEMISTRY ARMANDO THOMAS [facility] INSURANCE BILL * CBC W AUTO DIFFERENTIAL (01/27/2013 11:43 AM CUSTOMER AGENT) Only the most recent of3 resultswithin the time period is included. WBC 6.1 4.0 - 10.5 x10E3/uL [facility] INSURANCE BILL RBC 5.32 4.14 - 5.80 x10E6/uL [facility] INSURANCE BILL Hemoglobin 15.8 12.6 - 17.7 g/dL [facility] INSURANCE BILL Hematocrit 48.6 37.5 - 51.0 % [facility] INSURANCE BILL MCV 91 79 - 97 fL [facility] INSURANCE BILL MCH 29.7 26.6 - 33.0 pg [facility] INSURANCE BILL MCHC 32.5 31.5 - 35.7 g/dL [facility] INSURANCE BILL RDW 13.3 12.3 - 15.4 % [facility] INSURANCE BILL Platelet Count 145 140 - 415 x10E3/uL [facility] INSURANCE BILL Granulocytes % 58 40 - 74 % [facility] INSURANCE BILL Lymphocytes % 33 14 - 46 % [facility] INSURANCE BILL Monocytes % 6 4 - 13 % [facility] INSURANCE BILL Eosinophils % 2 0 - 7 % [facility] INSURANCE BILL Basophils % 1 0 - 3 % [facility] INSURANCE BILL Immature Cells NOT NEEDED [facility] INSURANCE BILL Comment:Ancillary determined the test is not needed Granulocytes Absolute 3.6 1.8 - 7.8 x10E3/uL [facility] INSURANCE BILL Lymphocytes Absolute 2.0 0.7 - 4.5 x10E3/uL [facility] INSURANCE BILL Monocytes Absolute 0.3 0.1 - 1.0 x10E3/uL [facility] INSURANCE BILL Eosinophils Absolute 0.1 0.0 - 0.4 x10E3/uL [facility] INSURANCE BILL Basophils Absolute 0.0 0.0 - 0.2 x10E3/uL [facility] INSURANCE BILL Immature Granulocytes 0 0 - 2 % [facility] INSURANCE BILL Immature Granulocytes Absolute 0.0 0.0 - 0.1 x10E3/uL [facility] INSURANCE BILL nRBC NOT NEEDED [facility] INSURANCE BILL Comment:Ancillary determined the test is not needed Comment Hematology NOT NEEDED [facility] INSURANCE BILL Comment:Ancillary determined the test is not needed Blood specimen (specimen) BLOOD SPECIMEN / Unknown 01/27/2013 11:43 AM CUSTOMER AGENT 01/27/2013 2:40 PM CUSTOMER AGENT Narrative Resulting Agency Comment [facility] [address] ??[facility] [phone] David Simmons MD LAB - HEMATOLOGY ORD ERABLES [facility] INSURANCE BILL * (ABNORMAL) COMPREHENSIVE METABOLIC PANEL (01/27/2013 11:43 AM CUSTOMER AGENT) Only the most recent of6 resultswithin the time period is included. Glucose 108(H) 65 - 99 mg/dL [facility] [...] BLOOD SPECIMEN / Unknown 01/27/2013 11:43 AM CUSTOMER AGENT 01/27/2013 2:40 PM CUSTOMER AGENT Narrative Resulting Agency Comment [facility] [address] ??[facility] [phone] David Simmons MD LAB - CHEMISTRY ARMANDO THOMAS Performing Organization Address [facility] de Phone Number [facility] INSURANCE BILL * PROSTATE SPECIFIC ANTIGEN SCREEN (01/27/2013 11:43 AM CUSTOMER AGENT) Only the most recent of2 resultswithin the time period is included. PSA 0.9 0.0 - 4.0 ng/mL [facility] INSURANCE BILL Comment: Gurwinder ECLIA methodology. ? . According to the [place] [employer], Serum PSA should decrease and remain at undetectable levels after radical prostatectomy. The AUA defines biochemical recurrence as an initial PSA value 0.2 ng/mL or greater followed by a subsequent confirmatory PSA value 0.2 ng/mL or greater. Values obtained with different assay methods or kits cannot be used interchangeably. Results cannot be interpreted as absolute evidence of the presence or absence of malignant disease. Blood specimen (specimen) BLOOD SPECIMEN / Unknown 01/27/2013 11:43 AM CUSTOMER AGENT 01/27/2013 2:40 PM CUSTOMER AGENT Narrative Resulting Agency Comment [facility] [address] [facility] ??[facility] [phone] David Simmons MD LAB - CHEMISTRY ARMANDO HTOMAS Performing Organization Address [facility] de Phone Number [facility] INSURANCE BILL * TSH (01/27/2013 11:43 AM CUSTOMER AGENT) Only the most recent of2 resultswithin the time period is included. TSH 1.360 0.450 - 4.500 uIU/mL [facility] INSURANCE BILL Blood specimen (specimen) BLOOD SPECIMEN / Unknown 01/27/2013 11:43 AM CUSTOMER AGENT 01/27/2013 2:40 PM CUSTOMER AGENT Narrative Resulting Agency Comment [facility] [address] ??[facility] [phone] David Simmons MD LAB - CHEMISTRY ARMANDO THOMAS [facility] INSURANCE BILL * (ABNORMAL) LIPID PROFILE (01/27/2013 11:43 AM CUSTOMER AGENT) Only the most recent of7 resultswithin the time period is included. Cholesterol 184 100 - 199 mg/dL [facility] INSURANCE BILL Triglycerides 78 0 - 149 mg/dL [facility] INSURANCE BILL HDL Cholesterol 50 >39 mg/dL [facility] INSURANCE BILL Comment: According to ATP-III Guidelines, HDL-C >59 mg/dL is considered a negative risk factor for CHD. VLDL Calculated 16 5 - 40 mg/dL [facility] INSURANCE BILL LDL Calculated 118(H) 0 - 99 mg/dL [facility] INSURANCE BILL Blood specimen (specimen) BLOOD SPECIMEN / Unknown 01/27/2013 11:43 AM CUSTOMER AGENT 01/27/2013 2:40 PM CUSTOMER AGENT Narrative Resulting Agency Comment [facility] [address] ??[facility] [phone] David Simmons MD LAB - CHEMISTRY ARMANDO THOMAS [facility] INSURANCE BILL * XR CHEST PA AND LATERAL (05/04/2012 12:46 PM CDT) Only the most recent of2 resultswithin the time period is included. Anatomical Region Laterality Modality Chest Radiographic Marie ging 05/04/2012 3:39 PM CDT Impressions 05/04/2012 3:39 PM CDT Normal chest x-ray. ?? Narrative 05/04/2012 3:39 PM CDT PA AND LATERAL CHEST 05/04/2012 INDICATION: Chest pain FINDINGS: PA and lateral views of the chest show the lungs to be expanded and clear. The cardiac and mediastinal silhouettes and pulmonary vascularity are ?? within normal limits. ? Procedure Note Stewart Hicks MD - 05/04/2012 PA AND LATERAL CHEST 05/04/2012 INDICATION: Chest pain FINDINGS: PA and lateral views of the chest show the lungs to be expanded and clear. The cardiac and mediastinal silhouettes and pulmonary vascularity are within normal limits. IMPRESSION Normal chest x-ray. David Simmons MD DIAGNOSTIC IMAGING O RDERABLES * EKG 12-LEAD (05/04/2012) David Simmons MD ECG ORDERABLES * SKIN TEST PPD - POINT OF CARE (01/30/2012) Only the most recent of2 resultswithin the time period is included. PPD neg MISCELLANEOUS SAMPLE S / Unknown David Simmons MD LAB - POINT OF CARE ORDERABLES * CT ABDOMEN PELVIS W WO CONT (01/20/2012) Anatomical Region Laterality Modality Abdomen, Pelvis Other Narrative 01/20/2012 A scan was deleted from the Results section by Hali Erwin [[email or web address]] on 01/28/2012 at 12:18 PM (File: [id number]) Reason: rescan with more legible copy David Simmons MD CT ORDERABLES * CELIAC DISEASE COMPREHENSIVE (PO REF LAB) (01/15/2012 9:02 AM CUSTOMER AGENT) Antigliadin Antibody IgA 5 0 - 19 units [facility] INSURANCE BILL Comment: ?Negative ? 0 - 19 ?Weak Positive ? 20 - 30 ?Moderate to Strong Positive ?? >30 Gliadin Deamidated Antibody IgG 4 0 - 19 units [facility] INSURANCE BILL Comment: ?Negative ? 0 - 19 ?Weak Positive ? 20 - 30 ?Moderate to Strong Positive ?? >30 TTG Antibody IgA <2 0 - 3 U/mL [facility] INSURANCE BILL Comment: ? Negative ?0 - ??3 ? Weak Positive ?? 4 - 10 ? Positive ? >10 ?. ?Tissue Transglutaminase (tTG) has been identified ?as the endomysial antigen. ??Studies have demonstr- ?ated that endomysial IgA antibodies have over 99% ?specificity for gluten sensitive enteropathy. TTG Antibody IgG <2 0 - 5 U/mL [facility] INSURANCE BILL Comment: ? Negative ?0 - 5 ? Weak Positive ?? 6 - 9 ? Positive ? >9 Endomysial Antibody IgA Negative Negative [facility] INSURANCE BILL IgA Quantitative 311 70 - 400 mg/dL [facility] INSURANCE BILL BLOOD SPECIMEN / Unknown 01/15/2012 9:02 AM CUSTOMER AGENT 01/15/2012 1:53 PM CUSTOMER AGENT Narrative Resulting Agency Comment [facility] [place] [address] ??[place] [phone] David Simmons MD LAB - CHEMISTRY ARMANDO THOMAS Performing Organization Address [facility] de Phone Number [facility] INSURANCE BILL * HIV-1 HIV-2 ANTIBODY (01/15/2012 8:57 AM CUSTOMER AGENT) HIV-1 Antibody O.D. Ratio <1.00 <1.00 [facility] INSURANCE BILL Comment:Index Value: Specime n reactivity relative to the negative cutoff. HIV-1/HIV-2 Non Reactive Non Reactive [facility] INSURANCE BILL Blood specimen (specimen) BLOOD SPECIMEN / Unknown 01/15/2012 8:57 AM CUSTOMER AGENT 01/15/2012 1:53 PM CUSTOMER AGENT Narrative Resulting Agency Comment [facility] [place] [address] ??[place] [phone] David Simmons MD LAB - CHEMISTRY ARMANDO THOMAS [facility] INSURANCE BILL * URINALYSIS - POINT OF CARE (01/13/2012) Clarity UA POCT Color UA POCT Leukocyte UA neg Negative Nitrite UA POCT neg Negative Urobilinogen UA POCT 0.2 0.1 - 1.0 EU/dL Protein UA POCT neg Negative pH UA 5.0 5.0 - 8.0 pH units Blood UA moderate Negtive Specific Topping UA POCT 1.010 1.002 - 1.030 Ketone UA neg Negative Bilirubin UA POCT neg Negative Glucose UA neg Negative Urine specimen (specimen) URINE / Unknown David Simmons MD LAB - POINT OF CARE ORDERABLES * ENDOSCOPY, COLON, SCREENING (12/09/2011 10:32 AM CUSTOMER AGENT) Narrative Transcriptions Zak Morillo MD - 12/09/2011 10:32 AM CST Zak Morillo MD GI PROCEDURE ORDERAB LES [facility] ENDOSCOPY * XR LUMBAR SPINE 4+ VW (06/14/2010 11:07 AM CDT) Only the most recent of2 resultswithin the time period is included. Anatomical Region Laterality Modality Spine Radiographic Marie ging 06/14/2010 11:2 2 AM CDT Addenda This result is currently undergoing an addendum. Addendum by Frank Desir MD on 07/11/2010 2:27 PM CDT Please note that the examination title is: 6 VIEW LUMBAR SPINE Narrative 07/11/2010 2:24 PM CDT Six views cervical spine Clinical Indication: Low back pain, sciatica. Comparison: 05/17/2009. Description: Alignment is anatomic. Vertebral body height is maintained throughout. The facet joints are congruent. There are no fractures. Procedure Note Frank Desir MD - 06/14/2010 Six views cervical spine Clinical Indication: Low back pain, sciatica. Comparison: 05/17/2009. Description: Alignment is anatomic. Vertebral body height is maintained throughout. The facet joints are congruent. There are no fractures. David Simmons MD DIAGNOSTIC IMAGING O RDERABLES * HEPATIC FUNCTION PANEL (07/13/2009 11:20 AM CDT) Protein Total 6.9 6.0 - 8.5 g/dL [facility] INSURANCE BILL Albumin 4.6 3.5 - 5.5 g/dL [facility] INSURANCE BILL Bilirubin Total 0.4 0.1 - 1.2 mg/dL [facility] INSURANCE BILL Bilirubin Direct 0.11 0.00 - 0.40 mg/dL [facility] INSURANCE BILL Alkaline Phosphatase 55 25 - 150 IU/L [facility] INSURANCE BILL AST 36 0 - 40 IU/L [facility] INSURANCE BILL ALT 40 0 - 55 IU/L [facility] INSURANCE BILL BLOOD SPECIMEN / Unknown 07/13/2009 11:20 AM CDT 07/13/2009 6:12 PM CDT Narrative Resulting Agency Comment [facility] [address] ??[facility] [phone] David Simmons MD LAB - CHEMISTRY ARMANDO THOMAS [facility] INSURANCE BILL Care Teams Stagecraft Teacher Relationship Specialty Start Date End Date Maria Ines Steiner MD [address] [place] [phone] PCP - General Internal Medicine 09/01/24
--- OUTSIDE RECORDS SUMMARY | 2024-12-16 19:03 | XMS_ITS | Clinical Summary ---
Author Organization [facility] Address [address] [place] [address] Care Team Providers Care Gasfitter Name Role Phone Amilcar Ramsey MD Primary Care Provider [phone] Allergies Active Allergy Reactions Criticality Noted Date Comments Morphine Nausea and Vomiting, Other (See Comments) Low Opioids - Morphine Analogues Nausea and Vomiting Low 12/26/2017 Oxycodone-Acetaminophen Headache,Other ( See Comments) Low 03/19/2010 Medications Fish Oil-Hardin-3 Fatty Acids 300-1,000 mg Oral Cap Take by mouth. Activ e Green Tea Crystal Extract (GREEN TEA) Oral Cap Take by mouth. A ctive rizatriptan (MAXALT-PLANNING SUPERVISOR) 10 mg Oral TbDL Take 10 mg by mouth see administration instructions 1 Tablet at onset of headache. May repeat in 2 hours if needed. Do not exceed 30 mg per day. . Active indomethacin (INDOCIN) 25 mg Oral capsuleIndicatio ns:Migraine with aura Take 1 Cap by mouth 2 times daily as needed (take with maxalt prn for severe headache). 30 Cap 1 09/10/20 10 Active propranolol (INDERAL) 10 mg tablet 1 Tab 2 times daily. Active simvastatin (ZOCOR) 40 mg tablet Take 1 Tablet by mouth daily at bedtime . Active lisinopril (PRINIVIL) 5 mg tablet Take 20 mg by mouth 2 times daily. Active onabotulinumtoxi nA (BOTOX INJECTION) by Injection route every 90 days For migraines . Active HYDROcodone-acet aminophen (NORCO) 10-325 mg Tablet Take 1 Tablet by mouth every 6 hours as needed for Pain, Moderate. Active gabapentin (NEURONTIN) 300 mg capsule Take 900 mg by mouth 3 times daily. Active HYDROcodone-acet aminophen (NORCO) 10-325 mg Tablet Take 1 Tablet by mouth every 4 hours as needed for Pain. Max Daily Amount: 6 Tablets 40 Tablet 8 10:27 AM BOTTLE INSPECTOR 11/11/20 18 Active docusate sodium (COLACE) 100 mg capsule Take 1 Capsule (100 mg) by mouth 2 times daily. 60 Capsule 6 8 10:27 AM BOTTLE INSPECTOR 11/11/20 18 Active cyclobenzaprine (FLEXERIL) 10 mg tablet Take 1 Tablet (10 mg) by mouth 3 times daily as needed for Spasm. 60 Tablet 8 10:27 AM BOTTLE INSPECTOR 11/11/20 18 Active aspirin (ECOTRIN EC) 81 mg Tablet, Delayed Release (E.C.) Take 81 mg by mouth daily. 08/06/20 22 Active carvediloL (COREG) 6.25 mg tablet TAKE 2 TABLETS BY MOUTH EVERY 12 HOURS . TAKE WITH SNACK / FOOD 04/01/20 24 Active Repatha SureClick 140 mg/mL Pen Injector 1 ML SUBCUTANEOUSLY EVERY 14DAYS 06/01/20 24 Active finasteride (PROSCAR) 5 mg tablet Take 5 mg by mouth daily. Active Ajovy Autoinjector 225 mg/1.5 mL Auto-Injector Inject 225 mg by subcutaneous injection. 06/01/20 24 Active rimegepant (Nurtec ODT) 75 mg Tablet, Rapid Dissolve Take 75 mg by mouth. 06/01/20 24 Active Active Problems Problem Noted Date Diagnosed Date Migraine with aura 03/19/2010 Essential and other specified forms of tremor High cholesterol 01/25/2010 Family History Medical History Relation Name Comments Healthy Daughter Allergic Rhinitis Father Asthma Father COPD Father Cancer Father Heart Disease Father Hypertension Father Cancer Mother Relation Name Status Comments Brother 1 Alive Brother 2 Alive Daughter Alive Father Mother Social History Tobacco Use Types Packs/Day Years Used Date Smoking Tobacco: Never Smokeless Tobacco: Never Alcohol Use Standard Drinks/Week Comments Yes 0 (1 standard drink = 0.6 oz pur e alcohol) Sex and Gender Information Value Date Recorded Sex Assigned at Not on file Legal Sex Male 4:51 AM BOTTLE INSPECTOR Gender Identity Not on file Sexual Orientation Not on file Occupation Industry Job Start Date Job End Date Not on file Not on file Not on file Not on file Last Filed Vital Signs Vital Sign Reading Time Taken Comments Blood Pressure 164/92 06/08/2024 1:35 PM CDT Pulse 78 11/11/2018 12:50 PM BOTTLE INSPECTOR Temperature 36.4 ??C (97.6 ??F) 06/08/2024 1:35 PM CD T Respiratory Rate 16 06/08/2024 1:35 PM CDT Oxygen Saturation 97% 06/08/2024 1:35 PM CDT Inhaled Oxygen Concentration - - Weight 86.9 kg (191 lb 8 oz) 06/08/2024 1:35 PM CDT Height 175.3 cm (5' 9 ) 06/08/2024 1:35 PM CDT Body Mass Index 28.28 06/08/2024 1:35 PM CDT Plan of Treatment Health Maintenance Due Date Last Done Comments Pre-Diabetes and Diabetes Screening 1967 DTAP/TDAP/TD VACCINES (1 - Tdap) 1986 HEPATITIS B VACCINES (1 of 3 - 19+ 3-dose series) 01/1986 FIT-DNA Q 3 years 2012 FIT/FOBT Q 1 year 2012 Flex Sig/CT Colonography Q 5 years 2012 ZOSTER VACCINE (1 of 2) 2017 INFLUENZA VACCINE (#1) 2024 COLORECTAL SCREENING 12/06/2031 12/06/2021 Colorectal Cancer Screening 12/06/2031 Medical Devices Implanted Type Area Dean Of Graduate Studies Device Identifier Shelf Expiration Date Model / Serial / Lot Sealant Fibrin Evicel 5ml [id number] - [id number] Implanted:Qty: 1 on 11/11/2018 by Freddy Krishnamurthy MD at [facility] Other Left: Spine Lumbar [employer] 05/23/2021 [id number] / / [id number] 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
--- OUTSIDE RECORDS SUMMARY | 2024-12-16 19:04 | XMS_ITS | Encounter Summary ---
Author Organization [facility] Address [address] [facility]. [place], [place] [address] [place] [address] Care Team Providers Care Fire Information Officer Name Role Phone Mauro Nelson MD Primary Care Provider [phone] Ivette Slater NP Primary Care Provider Unavailabl e Encounter Details Date Type Department Care Team (Late Contact Info) Description 12/18/2021 MyChart Message Enc [facility] Family & Internal Medicine [address] [address] Mauro Nelson MD [address] [address] Reschedule 12/27/21 appointment Social History Tobacco Use Types Packs/Day Years Used Date Smoking Tobacco: Never Smokeless Tobacco: Never Alcohol Use Standard Drinks/Week Comments Yes 1.7 (1 standard drink = 0.6 oz p ure alcohol) rare PHQ-2 Answer Date Recorded PHQ-2 Score - If the patient scores above 3, please move on to questions 3-9 0 06/08/2021 Sex and Gender Information Value Date Recorded Sex Assigned at Not on file Legal Sex Male 4:11 PM CDT Gender Identity Not on file Sexual Orientation Not on file documented as of this encounter Plan of Treatment Upcoming Encounters Date Type Department Care Team (Late st Contact Info) Description 12/17/2024 3:40 PM FACILITIES COORDINATOR Office Visit [facility] Multispecialty [address] [place] [address] Yelena Mahan MD [address] [facility] [address] [place] [address] documented as of this encounter Visit Diagnoses Not on filedocumented in this encounter Additional Health Concerns Assessment Noted Time PHQ-9 Depression Total Score: 0 06/08/20 21 4:22 PM CDT documented as of this encounter Care Teams Fire Information Officer Relationship Specialty Start Date End Date Mauro Nelson MD PCP - General INTERNAL MEDICINE 06/08/21 01/02/22 Ivette Slater NP PCP - General NURSE PRACTITIONER 01/03/22 documented as of this encounter
--- OUTSIDE RECORDS SUMMARY | 2024-12-16 19:04 | XMS_ITS | Encounter Summary ---
Author Organization [facility] Address [address] [place] [address]. [place], [place] [address] [place] [address] Care Team Providers Care Horticulture Professor Name Role Phone Ivette Slater PIPE STEM ALIGNER Primary Care Provider Unavailabl e Encounter Details Date Type Department Care Team (Late Contact Info) Description 01/24/2022 Pulse Electronics Message Enc [facility] Medical [facility] Family & Internal Medicine [address] [address] Johana, [facility] Provider BP Social History Tobacco Use Types Packs/Day Years [...] on file Sexual Orientation Not on file COVID-19 Exposure Response Date Recorded In the last 10 days, have yo u been in contact with someone who was confirmed or suspected to have Coronavirus/COVID-19? No / Unsure 01/03/2022 2:18 PM ANIMAL KEEPER HEAD documented as of this encounter Plan of Treatment Upcoming Encounters Date Type Department Care Team (Late st Contact Info) Description 12/17/2024 3:40 PM ANIMAL KEEPER HEAD Office Visit [facility] Multispecialty Care - [address] [place] [address] Yelena Mahna MD [address] [facility] [address] [place] [address] documented as of this encounter Visit Diagnoses Not on filedocumented in this encounter Additional Health Concerns Assessment Noted Time PHQ-9 Depression Total Score: 0 06/08/20 21 4:22 PM CDT documented as of this encounter Care Teams Horticulture Professor Relationship Specialty Start Date End Date Ivette Slater, PIPE STEM ALIGNER PCP - General NURSE PRACTITIONER 01/03/22 documented as of this encounter
--- OUTSIDE RECORDS SUMMARY | 2024-12-16 19:04 | XMS_ITS | Continuity of Care Document ---
Author Organization [facility] Address [address] [facility] [address] [place] [address] Phone Care Team Providers Care Fashion Design Professor Name Role Phone Yoly Abreu MD Unavailable Unavailable Advance Directives Directive Yes / No Effective Date File Name No Information Encounters Encounter Description Practice Location Reason(s) For Visit Diagnoses Date Provider Providers Copied on Encounter [facility], [address] [place], [place] [address], [id number], tel:[phone] [facility] No Information 1 Lois Frederick. [address] [facility] [address], [place], [id number] , [place]. tel: [phone] Family History Family Member Type Diagnosis Age At Onset No Information Payers Payer name Insurance type Covered alliance party ID Authoriza tion(s) No Information Social History Type Description Quantity Date Captured Comments Alcohol Use Details Unknown Caffeine Use Details Unknown Tobacco Use Status No Information Smoking Status No Information Sex Male Chief Complaint And Reason For Visit No Information Reason For Referral Reason For Referral No Information History Of Present Illness Encounter Date Complaint History Of Prese nt Illness No Information Functional Status Date Functional Assessmen t No Information Instructions Date Instruction Additional Infor mation No Information Assessments Type Assessment Date No Information Patient Care Teams Name Effective Dates (start - stop) Status Members No Information
--- OUTSIDE RECORDS SUMMARY | 2024-12-16 19:04 | XMS_ITS | Clinical Summary ---
Author Organization [facility] Address [address] [place] [address]. [place], [place] [address] [place] [address] Care Team Providers Care Sash Clamp Operator Name Role Phone Ivette Slater NP Primary Care Provider Unavailabl e Allergies Active Allergy Reactions Criticality Noted Date Comments Alprazolam Headache Low 08/23/2020 Cyclobenzaprine Unknown 08/23/2020 Morphine GI Upset,Other (see comment) 06/08/2021 migraines Oxycodone-Acetaminophen Headache,Other ( see comment),Unknown Medium 03/19/2010 Gets migraines Gets migraines Other reaction(s): Headache, Other Gets migraines Gets migraines Medications Fremanezumab-vfrm (AJOVY) 225 MG/1.5ML Solution Prefilled Syringe Inject 225 mg into the skin. 1 Active aspirin EC (ASPIRIN EC) 81 MG tablet Take 81 mg by mouth daily. Active rizatriptan 10 MG tablet Take 10 mg by mouth as needed for Migraine. May repeat in 2 hours if needed Active simvastatin 40 MG tablet Take 1 tablet by mouth nightly at bedtime. Active lisinopril 10 MG tabletIndications :Essential hypertension Take 1 tablet (10 mg total) by mouth 2 (two) times a day. Take with 5 mg tablet for a total of 15 mg BID. 180 tablet 1 2 Active lisinopril 5 MG tabletIndications :Essential hypertension Take 1 tablet (5 mg total) by mouth 2 (two) times a day. Take with 10 mg tablet for a total of 15 mg BID. 180 tablet 1 2 Active Active Problems Problem Noted Date Diagnosed Date Medication management 06/08/2021 BMI 26.0-26.9,adult 06/08/2021 Other chest pain 05/11/2021 Essential hypertension 05/11/2021 Hx of concussion 12/26/2017 Fatigue 12/26/2017 Benign essential tremor 12/26/2017 Overview (06/08/2021): Last Assessment & Plan: This is well controlled currently Chronic migraine 11/21/2016 Overview (06/08/2021): Last Assessment & Plan: Remains happy with management on Ajovy 225 every month. Has about 3 headaches per month, well managed with maxalt PRN (one headache per month can be treated with aspirin/aleve alone without maxalt) Encouraged continued efforts to manage lifestyle contributors to headache. Call if change/concern Offered 6-12 month follow up otherwise if remaining well controlled. Other hyperlipidemia 03/30/2009 Chronic sinusitis 03/30/2009 Resolved Problems Problem Noted Date Diagnosed Date Resolved Date Snoring 12/26/2017 06/08/2021 Encounters Date Type Department Care Team Description 10/20/2024 Scan [facility] LookMedBook SRVCS Scanned, Doc [facility] 09/27/2024 Scan [facility] INFO [facility]VCS Scanned, Doc Med Group Lab (SCAN) from Last 3 Months Family History Medical History Relation Comments Cancer Father prostate, lung Cancer Mother colon, abdominal Heart Disease Paternal Uncle Hypertension Paternal Uncle Relation Status Comments Father Mother Paternal Uncle Social History Tobacco Use Types Packs/Day Years Used Date Smoking Tobacco: Never Smokeless Tobacco: Never Tobacco Cessation:Counseling Given: No Alcohol Use Standard Drinks/Week Comments Yes 1.7 [...] Sign Reading Time Taken Comments Blood Pressure 130/78 01/03/2022 2:36 PM WEALTH MANAGEMENT DIRECTOR Pulse 74 01/03/2022 2:36 PM WEALTH MANAGEMENT DIRECTOR Temperature 36.2 ??C (97.1 ??F) 01/03/2022 2:36 PM CS T Respiratory Rate 18 01/03/2022 2:36 PM WEALTH MANAGEMENT DIRECTOR Oxygen Saturation 96% 01/03/2022 2:36 PM WEALTH MANAGEMENT DIRECTOR Inhaled Oxygen Concentration - - Weight 86.2 kg (190 lb) 01/03/2022 2:36 PM WEALTH MANAGEMENT DIRECTOR Height 175.3 cm (5' 9 ) 01/03/2022 2:36 PM WEALTH MANAGEMENT DIRECTOR Body Mass Index 28.06 01/03/2022 2:36 PM WEALTH MANAGEMENT DIRECTOR Plan of Treatment Upcoming Encounters Date Type Department Care Team (Late st Contact Info) Description 12/17/2024 3:40 PM WEALTH MANAGEMENT DIRECTOR Office Visit [facility] Multispecialty Care - [place] [address] [address] [place], [place] [id number] Yelena Mahan MD [address] [facility] [address] [place] [address] Health Maintenance Due Date Last Done Comments PHQ-2 (Physician [place]) 1979 Hepatitis C 1985 DTaP, Tdap and Td Vaccines ( 1 - Tdap) 1986 Hepatitis B Vaccines (1 of 3 - 19+ 3-dose series) 1986 Zoster Vaccines (1 of 2) 2017 Annual Physical 01/03/2023 01/03/2022 COVID-19 Vaccine (2 - 2023-2 5 season) 2024 12/19/2021 Influenza Adult (#1) 2024 Colorectal Cancer Screening Colonoscopy (10 Years) 12/06/2031 12/06/2021, 12/13/2019 Meningococcal B Vaccine Aged Out No l onger eligible based on patient's age to complete this topic Meningococcal Vaccine Aged Out No sandy javier eligible based on patient's age to complete this topic Pneumococcal Vaccine: Pediatrics (0 to 5 Years) and At-Risk Patients (6 to 64 Years) Aged Out No longer eligible b ased on patient's age to complete this topic RSV Immunizations Under 20 Months Aged Out No longer eligible b ased on patient's age to complete this topic Procedures Procedure Name Priority Date/Time Associated Diagnosis Comments OUTSIDE LAB (SCAN ORDER) 09/27/2024 COLONOSCOPY GENERIC (SCAN ORDER) 12/06/2021 from Last 3 Months or Most Recently Relevant to Health Maintenance Results * OUTSIDE LAB (SCAN ORDER) (09/27/2024) 09/27/2024 [facility] Scanned SCANNING Final Resu lt * COLONOSCOPY GENERIC (12/06/2021) 12/06/2021 Narrative 12/06/2021 Ordered by an unspecified provider. us Documents Scanned SCANNING Final Result from Last 3 Months or Most Recently Relevant to Health Maintenance Insurance [employer] HE[employer] Care Teams Sash Clamp Operator Relationship Specialty Start Date End Date Ivette Slater, EVGENY PCP - General NURSE PRACTITIONER 01/03/22
== END 2024-12-14 14:34 | disposition home or self-care (01) ==
LOC: ANHIMG 14:35
PROVIDERS: PCP Internal Medicine; Visit Provider Internal Medicine
DX: I82.811 Embolism and thrombosis of superficial veins of right lower extremity (principal)
CPT/HCPCS: 93971

== ENCOUNTER 2025-02-14 14:24 | Outpatient (CLI) | payer OTHER, SELFPAY ==
--- NOTE | ~2025-02-14 | US_ITS ---
EXAMINATION: US renal BI DATE: 02/14/2025 14:42 INDICATION: Stage IIIa chronic kidney disease TECHNIQUE: Multiple ultrasound grayscale images of the kidneys were obtained. COMPARISON: None. FINDINGS: The right kidney measures 10.4 x 6.4 x 5.5 cm. The left kidney measures 12.2 x 6.1 x 6.1 cm. The kidn eys demonstrate normal echogenicity. There is no hydronephrosis in either kidney. No stones identifi ed. The bladder is normal. IMPRESSION: 1. Normal kidneys without hydronephrosis. Reviewed, dictated and finalized at location B.
== END 2025-02-14 14:25 | disposition home or self-care (01) ==
PROVIDERS: PCP Internal Medicine; Visit Provider Internal Medicine Nephrology
DX: I12.9 Hypertensive chronic kidney disease with stage 1 through stage 4 chronic kidney disease, or unspecified chronic kidney disease (principal); N18.31 Chronic kidney disease, stage 3a
CPT/HCPCS: 76775

== ENCOUNTER 2025-03-12 10:59 | Outpatient (CLI) | payer OTHER, SELFPAY ==
--- NOTE | ~2025-03-12 | US_ITS ---
BILATERAL LOWER EXTREMITY VENOUS ULTRASOUND Ordering provider: Yelena Mahan, History: . Acute dvt . Comparison: None. FINDINGS: RIGHT LOWER EXTREMITY VEINS: --COMMON FEMORAL: Patent and free of thrombus. Normal compressibility, phasic flow and augmentation. --PROXIMAL SUPERFICIAL FEMORAL: Patent and free of thrombus. Normal compressibility, phasic flow and augmentation. --DISTAL SUPERFICIAL FEMORAL: Patent and free of thrombus. Normal compressibility, phasic flow and au gmentation. --POPLITEAL: Patent and free of thrombus. Normal compressibility, phasic flow and augmentation. --POSTERIOR TIBIAL: Patent and free of thrombus. Normal compressibility, phasic flow and augmentation . Thrombosis of the greater saphenous vein in the calf. LEFT LOWER EXTREMITY VEINS: --COMMON FEMORAL: Patent and free of thrombus. Normal compressibility, phasic flow and augmentation. --PROXIMAL SUPERFICIAL FEMORAL: Patent and free of thrombus. Normal compressibility, phasic flow and augmentation. --DISTAL SUPERFICIAL FEMORAL: Patent and free of thrombus. Normal compressibility, phasic flow and au gmentation. --POPLITEAL: Patent and free of thrombus. Normal compressibility, phasic flow and augmentation. --POSTERIOR TIBIAL: Patent and free of thrombus. Normal compressibility, phasic flow and augmentation . Thrombosis of the greater saphenous vein in the calf. IMPRESSION: No deep vein thrombosis. Thrombosis of the greater saphenous vein in the calf bilaterally. Reviewed, dictated and finalized at location A.
== END 2025-03-12 11:00 | disposition home or self-care (01) ==
LOC: MICIMG 11:00
PROVIDERS: PCP Internal Medicine; Visit Provider Internal Medicine
DX: I82.403 Acute embolism and thrombosis of unspecified deep veins of lower extremity, bilateral (principal)
CPT/HCPCS: 93970

== ENCOUNTER 2025-03-19 10:59 | Outpatient (CLI) | payer OTHER, SELFPAY ==
--- NOTE | ~2025-03-19 | US_ITS ---
EXAMINATION: US retroperitoneal duplex ltd DATE: 03/19/2025 11:48 INDICATION: Stage IIIa chronic kidney disease TECHNIQUE: Multiple grayscale, color Doppler, and pulsed Doppler images of the kidneys and renal carmelo roni were obtained. COMPARISON: None. FINDINGS: The aorta peak systolic velocity is 44 cm/s. The right renal artery peak systolic velocity is 51 cm/s in the proximal segment. The waveforms in the mid and distal right renal artery difficult to discern with suggestion of more intense waveform with multiple teeth superimposed over a fainter more likely true renal artery waveform which appears similar to the waveform in the proximal segment. The spectr a peak systolic velocity in the right mid renal artery is approximately 45 cm/s. The likely to peak a t the distal segment is indeterminate extending beyond the range of imaging which is limited at 60 cm /s. The measured velocities in the left renal artery are all significantly slower than normal (tammie l of 27 cm/s)and with similar irregular waveforms comprised of alternating higher and lower peak syst olic velocities. IMPRESSION: 1. No Doppler evidence of renal artery stenosis at the proximal right renal artery. Evaluation in th e more distal right renal artery and in the left renal artery is considered nondiagnostic due to abno rmal and potentially artifactual waveforms. Would consider further evaluation with either CT or MR an giogram. Reviewed, dictated and finalized at location B. IMPRESSION: 1. No Doppler evidence of renal artery stenosis at the proximal right renal ar giovanni. Evaluation in the more distal right renal artery and in the left renal ar giovanni is considered nondiagnostic due to abnormal and potentially artifactual wa veforms. Would consider further evaluation with either CT or MR angiogram.
== END 2025-03-19 11:00 | disposition home or self-care (01) ==
LOC: MICIMG 11:00
PROVIDERS: PCP Internal Medicine; Visit Provider Internal Medicine Nephrology
DX: I12.9 Hypertensive chronic kidney disease with stage 1 through stage 4 chronic kidney disease, or unspecified chronic kidney disease (principal); N18.31 Chronic kidney disease, stage 3a
CPT/HCPCS: 93976